=== PATIENT | male | born 1935 | race Caucasian/White ===

== ENCOUNTER 2018-02-27 06:36 | Day surgery (SDC) | payer MEDICARE ==
[~2018-02-27 06:36] MED LIST: ASPI-1079 PO; ATEN-42 PO; CLOP75TA16 PO; DIAZ5TAB4 PO; ENAL5TAB PO; FENO160T9 PO; INSU100C11 SQ; KETO10TA2 PO; LEVO125T8 PO; METF10004 PO; METO10TA3 PO; OMEP20CA10 PO; STAR120 PO; TAMS-11 PO; TERA10CA4 PO; VIAG100 PO; ZOLP10TA2 PO
[2018-02-27] MEDS ORDERED: LIDOCAINE HCL 1% 10 MG/ML 10ML VIAL ONE (07:52)
[2018-02-27] MEDS ORDERED: IODIXANOL 320MG/ML 100 ML BOTTLE IV ONE (07:52)
[2018-02-27] MEDS ORDERED: IOHEXOL-300 100 ML BOTTLE ONE (07:53)
[2018-02-27] MEDS ORDERED: FENTANYL CITRATE/PF 50MCG/ML 2ML VIAL ONE (08:35)
[2018-02-27] MEDS ORDERED: MIDAZOLAM HCL 2 MG/2 ML VIAL ONE (08:35)
[2018-02-27] MEDS ORDERED: INSU100I28 SQ (08:37)
[2018-02-27] MEDS ORDERED: SACU1TAB PO (08:37)
[2018-02-27] MEDS ORDERED: COR3 PO (08:37)
[2018-02-27] MEDS ORDERED: HYDRALAZINE 20MG/ML VIAL ONE (10:20)
[2018-02-27] MEDS ORDERED: ONDANSETRON HCL 4MG/2ML INJ IV PRN (10:45)
[2018-02-27] MEDS ORDERED: ACETAMINOPHEN 325MG TABLET PO PRN (10:45)
[2018-02-27] MEDS ORDERED: ENALAPRIL 1.25MG/ML VIAL 1ML IV ONE (10:47)
[2018-02-27] MEDS ORDERED: HEPARIN SODIUM 1,000 UNIT/1ML VIAL IV ONE (15:55)
[2018-03-07] MEDS ORDERED: INSU100I13 SQ (07:48)
[2018-03-07] MEDS ORDERED: ATOR40TA70 PO (07:50)
[2018-03-07] MEDS ORDERED: NITR0.4T49 SL (07:50)
== END 2018-02-27 15:10 | disposition home or self-care (01) ==
LOC: CCL 06:36
PROVIDERS: ATTEND Specialist
DX: I70.313 Atherosclerosis of unspecified type of bypass graft(s) of the extremities with intermittent claudication, bilateral legs (principal); I70.212 Atherosclerosis of native arteries of extremities with intermittent claudication, left leg; I25.10 Atherosclerotic heart disease of native coronary artery without angina pectoris; N40.0 Benign prostatic hyperplasia without lower urinary tract symptoms; J44.9 Chronic obstructive pulmonary disease, unspecified; E03.9 Hypothyroidism, unspecified; I25.5 Ischemic cardiomyopathy; I25.2 Old myocardial infarction; E78.00 Pure hypercholesterolemia, unspecified; K21.9 Gastro-esophageal reflux disease without esophagitis; I13.0 Hypertensive heart and chronic kidney disease with heart failure and stage 1 through stage 4 chronic kidney disease, or unspecified chronic kidney disease; E11.22 Type 2 diabetes mellitus with diabetic chronic kidney disease; N18.9 Chronic kidney disease, unspecified; I50.9 Heart failure, unspecified; Z79.4 Long term (current) use of insulin; Z79.82 Long term (current) use of aspirin; Z87.891 Personal history of nicotine dependence; Z79.899 Other long term (current) drug therapy; Z95.1 Presence of aortocoronary bypass graft; Z95.5 Presence of coronary angioplasty implant and graft
CPT/HCPCS: 36246; 75716; 82962; C1760; C1769; C1887; C1893; J0360; J1644; J2250; J3010; J3490; J7040; Q9967; 36247; A4315

== ENCOUNTER 2018-03-21 06:18 | Inpatient (IN) | payer MEDICARE ==
[2018-03-21] VITALS (12 sets, daily range): BP systolic 86–173; BP diastolic 46–75
[~2018-03-21] VITALS: Ht 177.8 cm; Wt 82.1 kg
[~2018-03-21 06:18] MED LIST changes: -ATEN-42 PO; +ATOR40TA70 PO; +COR3 PO; -ENAL5TAB PO; +INSU100I13 SQ; -KETO10TA2 PO; -LEVO125T8 PO; -METF10004 PO; -METO10TA3 PO; +NITR0.4T49 SL; +SACU1TAB PO; -STAR120 PO; -TERA10CA4 PO; -VIAG100 PO; -ZOLP10TA2 PO
[2018-03-21] MEDS ORDERED: IODIXANOL 320MG/ML 100 ML BOTTLE IV ONE (07:56)
[2018-03-21] MEDS ORDERED: LIDOCAINE HCL 1% 20ML VIAL (Pyxis) INJ ONE (07:56)
[2018-03-21] MEDS ORDERED: DIPHENHYDRAMINE 50MG/ML VIAL ONE (08:24)
[2018-03-21] MEDS ORDERED: MIDAZOLAM HCL 2 MG/2 ML VIAL ONE ×3 (08:46→10:43)
[2018-03-21] MEDS ORDERED: FENTANYL CITRATE/PF 50MCG/ML 2ML VIAL ONE ×2 (08:46→10:44)
[2018-03-21] MEDS ORDERED: IOHEXOL-300 100 ML BOTTLE ONE (09:18)
[2018-03-21] MEDS ORDERED: CLOPIDOGREL 75MG TABLET ONE (10:13)
[2018-03-21] MEDS ORDERED: ASPIRIN 325MG TABLET ONE (10:14)
[2018-03-21] MEDS ORDERED: ACETAMINOPHEN 325MG TABLET PO PRN (10:45)
[2018-03-21] MEDS ORDERED: ATROPINE SULFATE 1MG/10ML SYR IV PRN (10:45)
[2018-03-21] MEDS ORDERED: ZOLPIDEM TARTRATE 5MG TABLET PO NR (10:45)
[2018-03-21] MEDS ORDERED: ONDANSETRON HCL 4MG/2ML INJ IV PRN (10:45)
[2018-03-21] MEDS ORDERED: DEXTROSE 50% WATER 50ML SYRINGE IV PRN (12:15)
[2018-03-21] MEDS: BLOOD SUGAR DIAGNOSTIC STRIP TEST SCH ×3 (12:23→20:56)
[2018-03-21] MEDS: INSULIN LISPRO 100 UNITS/ML SUBCUT SCH ×3 (12:27→21:09)
[2018-03-21] MEDS ORDERED: HEPARIN SODIUM 1,000 UNIT/1ML VIAL IV ONE (13:42)
[2018-03-21] MEDS ORDERED: INFLUENZA VIRUS VACCINE(AFLURIA) 0.5ML SYR IM ONE (17:00)
[2018-03-21] MEDS ORDERED: INSULIN GLARGINE UD 100 UNITS/ML SYR SUBCUT SCH (22:00)
[2018-03-22 00:48] VITALS: BP 125/59
[2018-03-22 01:50] VITALS: BP 106/51
[2018-03-22 04:31] VITALS: BP 137/61
[2018-03-22 05:51] VITALS: BP 155/99
[2018-03-22] MEDS: BLOOD SUGAR DIAGNOSTIC STRIP TEST SCH (06:18)
[2018-03-22 06:32] LABS: BASOPHILS % 0.7 % (0.0-2.0); EOSINOPHILS % 5.9 % (0.0-5.0); HEMOGLOBIN. 10.7 g/dL (14.0-18.0); LYMPHOCYTES % 18.5 % (20.0-50.0); MEAN CORPUSCULAR VOLUME 87.2 fL (80.0-94.0); MONOCYTES % 10.1 % (2.0-8.0); NEUTROPHILS % 64.8 % (40.0-76.0); PLATELET 240 x1000/uL (130-400); RED BLOOD CELL COUNT 3.56 mill/uL (4.7-6.1)
[2018-03-22] MEDS: INSULIN LISPRO 100 UNITS/ML SUBCUT SCH (07:52)
[2018-03-22 08:00] VITALS: BP 136/69
[2018-03-22] MEDS ORDERED: ASPIRIN 325MG TABLET PO SCH (09:00)
[2018-03-22] MEDS ORDERED: CLOPIDOGREL 75MG TABLET PO SCH (09:00)
[2018-03-22] MEDS ORDERED: INFLUENZA VIRUS VACCINE(AFLURIA) 0.5ML SYR IM ONE ×2 (09:15→09:45)
[2018-03-22 09:26] VITALS: BP 128/83
== END 2018-03-22 10:26 | disposition home or self-care (01) | DRG 254 ==
LOC: CCL 06:18 → 3WST 06:19
PROVIDERS: ADMIT Specialist; ATTEND Specialist
PROC: 047H3DZ Dilation of Right External Iliac Artery with Intraluminal Device, Percutaneous Approach (ICD-10-PCS; principal; 2018-03-21)
PROC: 047K3DZ Dilation of Right Femoral Artery with Intraluminal Device, Percutaneous Approach (ICD-10-PCS; 2018-03-21)
PROC: B41F1ZZ Fluoroscopy of Right Lower Extremity Arteries using Low Osmolar Contrast (ICD-10-PCS; 2018-03-21)
DX: I70.201 Unspecified atherosclerosis of native arteries of extremities, right leg (principal); E11.51 Type 2 diabetes mellitus with diabetic peripheral angiopathy without gangrene; D63.8 Anemia in other chronic diseases classified elsewhere; E78.5 Hyperlipidemia, unspecified; I11.9 Hypertensive heart disease without heart failure; I70.211 Atherosclerosis of native arteries of extremities with intermittent claudication, right leg; I25.10 Atherosclerotic heart disease of native coronary artery without angina pectoris; I25.5 Ischemic cardiomyopathy; Z95.820 Peripheral vascular angioplasty status with implants and grafts; Z79.4 Long term (current) use of insulin
CPT/HCPCS: 36415; 37221; 37226; 75710; 82962; 85025; 85347; 90686; C1725; C1726; C1769; C1876; C1887; C1893; C1894; J1200; J1644; J1815; J2250; J3010; J3490; Q9967

== ENCOUNTER 2018-04-10 06:50 | Day surgery (SDC) | payer MEDICARE ==
[~2018-04-10] VITALS: Ht 177.8 cm; Wt 81.6 kg
[2018-04-10] MEDS ORDERED: IODIXANOL 320MG/ML 200ML BOTTLE ONE (07:40)
[2018-04-10] MEDS ORDERED: ESZO1TAB11 MT (08:16)
[2018-04-10] MEDS ORDERED: SACU1TAB PO (08:16)
[2018-04-10] MEDS ORDERED: FENTANYL CITRATE/PF 50MCG/ML 2ML VIAL ONE (08:26)
[2018-04-10] MEDS ORDERED: MIDAZOLAM HCL 2 MG/2 ML VIAL ONE ×2 (08:26→08:46)
[2018-04-10] MEDS ORDERED: DIPHENHYDRAMINE 50MG/ML VIAL ONE (08:27)
[2018-04-10] MEDS ORDERED: LIDOCAINE HCL 1% 20ML VIAL (Pyxis) INJ ONE (08:27)
[2018-04-10] MEDS ORDERED: IOHEXOL-300 100 ML BOTTLE ONE (09:08)
[2018-04-10] MEDS ORDERED: CLOPIDOGREL 75MG TABLET ONE (09:55)
[2018-04-10] MEDS ORDERED: ASPIRIN 325MG TABLET ONE (09:55)
[2018-04-10] MEDS ORDERED: ATROPINE SULFATE 1MG/10ML SYR IV PRN (10:15)
[2018-04-10] MEDS ORDERED: ONDANSETRON HCL 4MG/2ML INJ IV PRN (10:15)
[2018-04-10] MEDS ORDERED: ACETAMINOPHEN 325MG TABLET PO PRN (10:15)
[2018-04-10] MEDS ORDERED: HEPARIN SODIUM 1,000 UNIT/1ML VIAL IV ONE (14:52)
== END 2018-04-10 15:00 | disposition home or self-care (01) ==
LOC: CCL 06:50
PROVIDERS: ATTEND Specialist
DX: I70.211 Atherosclerosis of native arteries of extremities with intermittent claudication, right leg (principal); I25.10 Atherosclerotic heart disease of native coronary artery without angina pectoris; E78.5 Hyperlipidemia, unspecified; I25.2 Old myocardial infarction; J44.9 Chronic obstructive pulmonary disease, unspecified; I13.0 Hypertensive heart and chronic kidney disease with heart failure and stage 1 through stage 4 chronic kidney disease, or unspecified chronic kidney disease; E11.22 Type 2 diabetes mellitus with diabetic chronic kidney disease; N18.9 Chronic kidney disease, unspecified; I50.9 Heart failure, unspecified; E11.9 Type 2 diabetes mellitus without complications; K21.9 Gastro-esophageal reflux disease without esophagitis; E03.9 Hypothyroidism, unspecified; Z95.1 Presence of aortocoronary bypass graft; Z79.899 Other long term (current) drug therapy; Z79.4 Long term (current) use of insulin; Z79.82 Long term (current) use of aspirin; Z95.5 Presence of coronary angioplasty implant and graft
CPT/HCPCS: 37226; 75710; 82962; 85347; 99152; 99153; C1760; C1876; C1887; J1200; J1644; J2250; J3010; J3490; Q9967; C1725; C1769; C1893

== ENCOUNTER 2018-04-24 06:35 | Day surgery (SDC) | payer MEDICARE ==
[~2018-04-24] VITALS: Ht 177.8 cm; Wt 81.6 kg
[~2018-04-24 06:35] MED LIST changes: +ESZO1TAB11 MT
[2018-04-24] MEDS ORDERED: LIDOCAINE HCL 1% 20ML VIAL (Pyxis) INJ ONE (07:46)
[2018-04-24] MEDS ORDERED: IODIXANOL 320MG/ML 100 ML BOTTLE IV ONE (07:47)
[2018-04-24] MEDS ORDERED: FENTANYL CITRATE/PF 50MCG/ML 5ML VIAL ONE (08:20)
[2018-04-24] MEDS ORDERED: MIDAZOLAM HCL 5 MG/5 ML VIAL ONE (08:20)
[2018-04-24] MEDS ORDERED: DIPHENHYDRAMINE 50MG/ML VIAL ONE (08:21)
[2018-04-24] MEDS ORDERED: IOHEXOL-300 100 ML BOTTLE ONE (09:17)
[2018-04-24] MEDS ORDERED: ASPIRIN 325MG TABLET ONE (10:47)
[2018-04-24] MEDS ORDERED: HYDRALAZINE 20MG/ML VIAL ONE (10:47)
[2018-04-24] MEDS ORDERED: CLOPIDOGREL 75MG TABLET ONE (10:48)
[2018-04-24] MEDS ORDERED: HEPARIN SODIUM 1,000 UNIT/1ML VIAL IV ONE (13:29)
[2018-04-24] MEDS ORDERED: ONDANSETRON HCL 4MG/2ML INJ IV PRN (16:43)
[2018-04-24] MEDS ORDERED: ACETAMINOPHEN 325MG TABLET PO PRN (16:43)
[2018-04-24] MEDS ORDERED: ATROPINE SULFATE 1MG/10ML SYR IV PRN (16:43)
== END 2018-04-24 14:00 | disposition home or self-care (01) ==
LOC: CCL 06:35
PROVIDERS: ATTEND Specialist
DX: I70.212 Atherosclerosis of native arteries of extremities with intermittent claudication, left leg (principal); I25.10 Atherosclerotic heart disease of native coronary artery without angina pectoris; J44.9 Chronic obstructive pulmonary disease, unspecified; K21.9 Gastro-esophageal reflux disease without esophagitis; E78.5 Hyperlipidemia, unspecified; E03.9 Hypothyroidism, unspecified; I25.2 Old myocardial infarction; I25.5 Ischemic cardiomyopathy; I13.0 Hypertensive heart and chronic kidney disease with heart failure and stage 1 through stage 4 chronic kidney disease, or unspecified chronic kidney disease; E11.22 Type 2 diabetes mellitus with diabetic chronic kidney disease; N18.9 Chronic kidney disease, unspecified; I50.9 Heart failure, unspecified; Z79.82 Long term (current) use of aspirin; Z79.899 Other long term (current) drug therapy; Z79.4 Long term (current) use of insulin; Z95.5 Presence of coronary angioplasty implant and graft; Z98.890 Other specified postprocedural states
CPT/HCPCS: 37221; 37226; 75710; 85347; 99152; 99153; C1760; C1876; C1887; C1894; J0360; J1200; J1644; J2250; J3010; J3490; Q9967; C1725; C1769; C1893

== ENCOUNTER 2021-07-20 06:29 | Inpatient (IN) | payer MEDICARE ==
[~2021-07-20] VITALS: Ht 180.3 cm; Wt 92.1 kg
[~2021-07-20 06:29] MED LIST changes: +CLOP-31 PO; -CLOP75TA16 PO; -OMEP20CA10 PO; +OMEP20CA14 PO
[2021-07-20] MEDS ORDERED: DICL50TA9 MT (07:41)
[2021-07-20] MEDS ORDERED: MONT10TA32 MT (07:41)
[2021-07-20] MEDS ORDERED: EPLE25TA10 MT (07:41)
[2021-07-20] MEDS ORDERED: PANT20TA17 PO (07:41)
[2021-07-20] MEDS ORDERED: FOLI-43 MT (07:41)
[2021-07-20] MEDS ORDERED: VITA0.4T19 PO (07:41)
[2021-07-20] MEDS ORDERED: FINA5TAB11 MT (07:41)
[2021-07-20] MEDS ORDERED: LACT1CAP68 PO (07:41)
[2021-07-20] MEDS ORDERED: BETA1TAB20 MT (07:41)
[2021-07-20] MEDS ORDERED: EMPA10TA MT (07:41)
[2021-07-20] MEDS ORDERED: FENTANYL CITRATE/PF 50MCG/ML 2ML VIAL ONE (08:52)
[2021-07-20] MEDS ORDERED: IODIXANOL 320MG/ML 100 ML BOTTLE IV ONE ×2 (08:53→09:53)
[2021-07-20] MEDS ORDERED: LIDOCAINE HCL 1% 20ML VIAL (Pyxis) INJ ONE (08:53)
[2021-07-20] MEDS ORDERED: MIDAZOLAM HCL 2 MG/2 ML VIAL ONE (08:53)
[2021-07-20] MEDS ORDERED: NITROGLYCERIN 50MCG/ML 10ML VIAL (CATH LAB) IV ONE (09:17)
[2021-07-20] MEDS ORDERED: HEPARIN SODIUM 1,000 UNIT/1ML VIAL IV ONE (09:17)
[2021-07-20] MEDS ORDERED: NICARDIPINE 100MCG/ML 10ML VIAL (CATH LAB) IV ONE (09:17)
[2021-07-20] MEDS ORDERED: IOHEXOL-300 100 ML BOTTLE ONE (09:46)
[2021-07-20] MEDS ORDERED: ATROPINE SULFATE 1MG/10ML SYR IV PRN (10:30)
[2021-07-20] MEDS ORDERED: CLOPIDOGREL 75MG TABLET ONE (10:30)
[2021-07-20] MEDS ORDERED: ONDANSETRON HCL 4MG/2ML INJ IV PRN (10:30)
[2021-07-20] MEDS ORDERED: ASPIRIN 325MG TABLET ONE (10:30)
[2021-07-20] MEDS ORDERED: ACETAMINOPHEN 325MG TABLET PO PRN (10:30)
[2021-07-20 10:43] VITALS: BP 141/61
[2021-07-20 10:50] VITALS: BP 141/61
[2021-07-20] MEDS ORDERED: PNEUMOCOCCAL 23-VAL P-SAC VAC 0.5 ML IM ONE (11:30)
[2021-07-20] MEDS: INSULIN LISPRO 100 UNITS/ML SUBCUT SCH ×3 (11:52→20:22)
[2021-07-20] MEDS: BLOOD SUGAR DIAGNOSTIC STRIP TEST SCH ×3 (11:52→20:01)
[2021-07-20 14:45] VITALS: BP 129/64
[2021-07-20 15:30] VITALS: BP 145/85
[2021-07-20 18:48] VITALS: BP 136/50
[2021-07-20] MEDS ORDERED: ZOLPIDEM TARTRATE 5MG TABLET PO PRN (21:00)
[2021-07-20 22:00] VITALS: BP 122/51
[2021-07-21] VITALS (7 sets, daily range): BP systolic 117–157; BP diastolic 40–118
[2021-07-21] MEDS: BLOOD SUGAR DIAGNOSTIC STRIP TEST SCH (06:04)
[2021-07-21] MEDS: INSULIN LISPRO 100 UNITS/ML SUBCUT SCH (07:20)
[2021-07-21 07:56] LABS: BASOPHILS % 0.5 % (0.0-2.0); EOSINOPHILS % 3.5 % (0.0-5.0); HEMOGLOBIN. 12.1 g/dL (14.0-18.0); LYMPHOCYTES % 20.1 % (20.0-50.0); MEAN CORPUSCULAR HEMOGLOBIN 30.4 pg (28.0-32.0); MEAN CORPUSCULAR VOLUME 90.4 fL (80.0-94.0); MEAN PLATELET VOLUME 8.3 fl (7.4-10.4); MONOCYTES % 12.2 % (2.0-8.0); NEUTROPHILS % 63.7 % (40.0-76.0); PLATELET 168 x1000/uL (130-400); RED BLOOD CELL COUNT 3.98 mill/uL (4.7-6.1); RED CELL DISTRIBUTION WIDTH 15.7 % (11.6-14.6)
[2021-07-21] MEDS ORDERED: ASPIRIN 325MG TABLET PO SCH (09:00)
[2021-07-21] MEDS ORDERED: CLOPIDOGREL 75MG TABLET PO SCH (09:00)
[2021-07-21] MEDS ORDERED: ASPI-1079 PO (09:58)
[2021-07-21] MEDS ORDERED: DOCUSATE SODIUM 100MG CAPSULE PO SCH (20:00)
== END 2021-07-21 10:43 | disposition home or self-care (01) | DRG 247 ==
LOC: CCL 06:29 → 3WST 06:30
PROVIDERS: ADMIT Specialist; ATTEND Specialist
PROC: 027034Z Dilation of Coronary Artery, One Artery with Drug-eluting Intraluminal Device, Percutaneous Approach (ICD-10-PCS; principal; 2021-07-20)
PROC: B211YZZ Fluoroscopy of Multiple Coronary Arteries using Other Contrast (ICD-10-PCS; 2021-07-20)
PROC: 4A023N7 Measurement of Cardiac Sampling and Pressure, Left Heart, Percutaneous Approach (ICD-10-PCS; 2021-07-20)
PROC: B213YZZ Fluoroscopy of Multiple Coronary Artery Bypass Grafts using Other Contrast (ICD-10-PCS; 2021-07-20)
DX: I25.110 Atherosclerotic heart disease of native coronary artery with unstable angina pectoris (principal); I13.0 Hypertensive heart and chronic kidney disease with heart failure and stage 1 through stage 4 chronic kidney disease, or unspecified chronic kidney disease; E78.5 Hyperlipidemia, unspecified; E11.51 Type 2 diabetes mellitus with diabetic peripheral angiopathy without gangrene; N40.0 Benign prostatic hyperplasia without lower urinary tract symptoms; I25.5 Ischemic cardiomyopathy; D63.8 Anemia in other chronic diseases classified elsewhere; K22.70 Barrett's esophagus without dysplasia; F51.04 Psychophysiologic insomnia; I44.0 Atrioventricular block, first degree; I50.9 Heart failure, unspecified; I44.7 Left bundle-branch block, unspecified; N18.9 Chronic kidney disease, unspecified; E11.22 Type 2 diabetes mellitus with diabetic chronic kidney disease; Z20.822 Contact with and (suspected) exposure to COVID-19; Z79.02 Long term (current) use of antithrombotics/antiplatelets; Z79.4 Long term (current) use of insulin; Z79.84 Long term (current) use of oral hypoglycemic drugs; Z79.899 Other long term (current) drug therapy; I25.2 Old myocardial infarction; Z95.1 Presence of aortocoronary bypass graft; Z82.49 Family history of ischemic heart disease and other diseases of the circulatory system; Z95.820 Peripheral vascular angioplasty status with implants and grafts
CPT/HCPCS: 36415; 80048; 82962; 85025; 85347; 87426; 90732; 92928; 93005; 93458; C1725; C1769; C1874; C1887; C1893; J1644; J2250; J3010; J3490; Q9967

== ENCOUNTER 2022-11-16 09:28 | Inpatient (IN) | payer MEDICARE ==
[~2022-11-16] VITALS: Ht 177.8 cm; Wt 86.4 kg
[~2022-11-16 09:28] MED LIST changes: +BETA1TAB20 MT; +DICL50TA9 MT; +EMPA10TA MT; +EPLE25TA10 MT; +FINA5TAB11 MT; +LACT1CAP68 PO; +MONT-39 MT; +PANT20TA17 PO; +VITA0.4T19 PO
[2022-11-16] MEDS ORDERED: PENT400T16 PO (11:29)
[2022-11-16] MEDS ORDERED: TRAM50TA3 MT (11:29)
[2022-11-16] MEDS ORDERED: BETA1TAB20 MT (11:29)
[2022-11-16] MEDS ORDERED: ISOS30TA91 PO (11:29)
[2022-11-16] MEDS ORDERED: IODIXANOL 320MG/ML 100 ML BOTTLE IV ONE (13:53)
[2022-11-16] MEDS ORDERED: MIDAZOLAM HCL 2 MG/2 ML VIAL ONE ×2 (13:53→16:16)
[2022-11-16] MEDS ORDERED: LIDOCAINE HCL 1% 20ML VIAL (Pyxis) INJ ONE (13:53)
[2022-11-16] MEDS ORDERED: FENTANYL CITRATE/PF 50MCG/ML 2ML VIAL ONE (13:53)
[2022-11-16] MEDS ORDERED: HEPARIN 1000 UNITS/ML 10ML ONE ×2 (13:53→15:50)
[2022-11-16] MEDS ORDERED: ASPIRIN 325MG TABLET ONE (16:33)
[2022-11-16] MEDS ORDERED: CLOPIDOGREL 75MG TABLET ONE (16:33)
[2022-11-16] MEDS ORDERED: ATROPINE SULFATE 1MG/10ML SYR IV PRN (16:45)
[2022-11-16] MEDS ORDERED: ACETAMINOPHEN 325MG TABLET PO PRN (16:45)
[2022-11-16] MEDS ORDERED: ONDANSETRON HCL 4MG/2ML INJ IV PRN (16:45)
[2022-11-16 20:00] VITALS: BP_SYST 125; BP_SYST 128; BP_SYST 144; BP_DIAS 37; BP_DIAS 60
[2022-11-16] MEDS ORDERED: TRAMADOL 50MG TABLET PO PRN (20:45)
[2022-11-16] MEDS ORDERED: ZOLPIDEM TARTRATE 5MG TABLET PO PRN (20:45)
[2022-11-16] MEDS ORDERED: NALOXONE HCL 0.4MG/ML VIAL IV PRN (20:45)
[2022-11-16] MEDS: ATORVASTATIN CALCIUM 40MG TABLET PO SCH (20:55)
[2022-11-17] VITALS: BP 115/57
[2022-11-17 04:00] VITALS: BP 119/54
[2022-11-17 06:29] LABS: CHLORIDE 110 mEq/L (98-107)
[2022-11-17 08:00] VITALS: BP 147/72
[2022-11-17] MEDS ORDERED: CLOPIDOGREL 75MG TABLET PO SCH (09:00)
[2022-11-17] MEDS ORDERED: ISOSORBIDE MONONITRATE 30MG TABLET SR 24HR PO SCH ×2 (09:00)
[2022-11-17] MEDS ORDERED: ASPIRIN 81MG TABLET PO SCH (09:00)
[2022-11-17] MEDS ORDERED: CARVEDILOL 3.125 MG TABLET PO SCH (09:00)
[2022-11-17] MEDS ORDERED: ASPIRIN 325MG TABLET PO SCH (09:00)
[2022-11-17] MEDS: ATORVASTATIN CALCIUM 40MG TABLET PO SCH (09:43)
[2022-11-17 10:44] VITALS: BP 147/72
== END 2022-11-17 12:02 | disposition home or self-care (01) | DRG 254 ==
LOC: CCL 09:28 → 3WST 19:30
PROVIDERS: ADMIT Specialist; ATTEND Specialist
PROC: 04FD3ZZ Fragmentation of Left Common Iliac Artery, Percutaneous Approach (ICD-10-PCS; principal; 2022-11-16)
PROC: 047D3EZ Dilation of Left Common Iliac Artery with Two Intraluminal Devices, Percutaneous Approach (ICD-10-PCS; 2022-11-16)
PROC: B41C1ZZ Fluoroscopy of Pelvic Arteries using Low Osmolar Contrast (ICD-10-PCS; 2022-11-16)
DX: E11.51 Type 2 diabetes mellitus with diabetic peripheral angiopathy without gangrene (principal); E78.5 Hyperlipidemia, unspecified; I10 Essential (primary) hypertension; I25.10 Atherosclerotic heart disease of native coronary artery without angina pectoris; I25.2 Old myocardial infarction; I70.8 Atherosclerosis of other arteries; N28.9 Disorder of kidney and ureter, unspecified; Z79.4 Long term (current) use of insulin; Z79.84 Long term (current) use of oral hypoglycemic drugs; Z79.899 Other long term (current) drug therapy; Z95.1 Presence of aortocoronary bypass graft
CPT/HCPCS: 36415; 80048; 85347; C1726; J1644; J2250; J3010; J3490; Q9967; A4315